=== PATIENT | male | born 1985 | race Caucasian/White ===

== ENCOUNTER 2019-10-16 13:31 | Emergency (ER) | payer OTHER ==
[~2019-10-16] VITALS: Ht 180.3 cm; Wt 90.7 kg
[2019-10-16] MEDS ORDERED: LIDO700A20 TOP (14:46)
[2019-10-16] MEDS ORDERED: Robaxin-750750 MG PO (14:46)
[2019-10-16] MEDS ORDERED: PRED10 PO (14:46)
[2019-10-16] MEDS ORDERED: NAPR550 PO (14:46)
== END 2019-10-16 14:59 | disposition home or self-care (01) ==
LOC: ER 13:31
DX: S39.012A Strain of muscle, fascia and tendon of lower back, initial encounter (principal); F17.200 Nicotine dependence, unspecified, uncomplicated; X58.XXXA Exposure to other specified factors, initial encounter; Y93.89 Activity, other specified
CPT/HCPCS: 72100; 96372; 99283-25; J1885